=== PATIENT | male | born 1975 | race Two or more races ===

== ENCOUNTER 2019-07-30 15:39 | Emergency (ER) | payer OTHER ==
[~2019-07-30] VITALS: Ht 172.7 cm; Wt 108.9 kg
[2019-07-30] MEDS ORDERED: Acetaminophen 500mg (ES) tab ORAL ONE ×2 (15:45→16:04)
[2019-07-30] MEDS ORDERED: Tetanus/Diptheria/Pertussis IM ONE ×2 (15:45→16:09)
--- NOTE | 2019-07-30 15:45 | Emergency Room Report ---
History of Present Illness General Chief Complaint: Left head pain Source: Patient Present Illness HPI 43-year-old male, no past medical history no surgical history, vaccines are not up-to-date presents with fall from ladder 6 feet, patient fell backward hit his head, hit his left shoulder, no LOC no nausea no vomiting no neck pain, he endorses some muscle pain, patient was amatory at scene, brought in by EMS for evaluation, patient endorses left posterior head pain, no aggravating alleviating factors severity is mild Allergies: Coded Allergies: No Known Allergies (Unverified , 07/30/19) Patient History Past Medical History: see triage record Reviewed Nursing Documentation: PMH: Agreed; PSxH: Agreed Review of Systems All Other Systems: negative except mentioned in HPI Physical Exam Sp02 EP Interpretation: reviewed, normal General Appearance: well appearing, no apparent distress, alert Head: normocephalic, other - Left occipital hematoma Eyes: bilateral eye PERRL, bilateral eye EOMI ENT: uvula midline, moist mucus membranes Neck: supple, thyroid normal, no bony tend, supple/symm/no masses Respiratory: lungs clear, no respiratory distress, no retraction, no accessory muscle use Cardiovascular #1: normal peripheral pulses, regular rate, rhythm, no edema, no gallop, no murmur Gastrointestinal: non tender, soft, no guarding, no rebound Musculoskeletal: normal inspection, swelling - Medial aspect of tib-fib, other - Left upper extremity: 2+ radial pulses radial median ulnar nerve intact, tenderness palpation left lateral shoulder range of motion intact, tenderness to palpation medial tib-fib, no deformity Neurologic: alert, oriented x3 Psychiatric: mood/affect normal Skin: no rash, warm/dry Medical Decision Making Diagnostic Impression: Primary Impression: Fall Qualified Codes: W19.XXXA - Unspecified fall, initial encounter Additional Impressions: Shoulder contusion Qualified Codes: S40.012A - Contusion of left shoulder, initial encounter Contusion of muscle Closed head injury Qualified Codes: S09.90XA - Unspecified injury of head, initial encounter ER Course 43-year-old male presents with mechanical fall from ladder 6 feet high, no LOC, patient with currently no nausea vomiting chest pain shortness of breath, low suspicion for fracture, low suspicion for intracranial bleed, patient with a hematoma will provide Tdap, patient given pain control, CT head shows no acute bleeding, x-rays of the extremities show no acute fracture disposition home with return precautions Chest X-Ray Diagnostic Results Chest X-Ray Diagnostic Results : Chest X-Ray Ordered: Yes # of Views/Limited/Complete: 1 View Indication: Other - Shoulder pain EP Interpretation: Yes Interpretation: no consolidation, no effusion, no pneumothorax, no acute cardiopulmonary disease Impression: No acute disease Electronically Signed by: Marty Barry MD CT/MRI/US Diagnostic Results CT/MRI/US Diagnostic Results : Impression Impression: No mass effect, edema or acute bleed. Left scalp hematoma Cysticercosis The CT scanner at [facility] is accredited by the [employer] and the scans are performed using dose optimization techniques as appropriate to a performed exam including Automatic Exposure control. Procedure: XRAY Leg Lower Tib Fib 2v L Indication: Left leg pain Comparison: None Findings: Two views of the left tibia and fibula were obtained. No acute fracture, malalignment, or periosteal reaction are identified. Soft tissues are unremarkable. Impression: No acute injury. Dictated By: Cosmo Fish MD Electronically Signed By: Cosmo Fish MD Signed Date/Time 07/30/19 1629 CC: Marty Barry MD Dictated By: Cosmo Fish MD Electronically Signed By: Cosmo Fish MD Signed Date/Time 07/30/19 1632 CC: Marty Barry MD Procedure: XRAY Shoulder Compl L Indication: left shoulder pain Findings: 3 views of the left shoulder were obtained. Alignment of the left shoulder is normal. No acute fracture is identified. Soft tissues are unremarkable. Impression: No acute injury Dictated By: Cosmo Fish MD Electronically Signed By: Cosmo Fish MD Signed Date/Time 07/30/19 1638 CC: Marty Barry MD Disposition: HOME, SELF-CARE Condition: Stable Scripts Methocarbamol* (ROBAXIN-750*) 750 Mg Tablet 750 MG PO QID, #28 TAB 0 Refills Prov: Marty Barry MD 07/30/19 Naproxen* (NAPROSYN*) 250 Mg Tablet 250 MG ORAL TID PRN for For Pain, #20 TAB 0 Refills Prov: Marty Barry MD 07/30/19 Referrals: [facility] [place] [facility] Patient Instructions: Contusion, [id number], Head Injury, Adult, [id number] Additional Instructions: The patient was provided with discharge instructions, notified to follow-up with a primary care doctor and or specialist in the next 24-48 hours, and to return to the ED if they have worsening of their symptoms. Please note that this report is being documented using DRAGON technology. This can lead to erroneous entry secondary to incorrect interpretation by the dictating instrument. Marty Barry MD Jul 30, 2019 15:45
[2019-07-30 15:50] VITALS: BP 164/101
--- NOTE | 2019-07-30 15:50 | NUR ---
ED Nurse Note: Patineniranjan LUCIO from work. 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 He hit his head, left shoulder, left gaming, and has a small laceration on his left thumb. Patient AxO x 4, no neuro deficits. Patient states he has 8/10 generalized body aches. Patient cooperative. Patient's uniform cut off with his permission. Patient stated that he would like us to cut his uniform off so that it is less painful for him to get out of his clothing and into the hospital gown.
--- NOTE | 2019-07-30 16:34 | Diagnostic Imaging Report ---
Indication: Left leg pain Comparison: None Findings: Two views of the left tibia and fibula were obtained. No acute fracture, malalignment, or periosteal reaction are identified. Soft tissues are unremarkable. Impression: No acute injury.
--- NOTE | 2019-07-30 16:38 | Diagnostic Imaging Report ---
Indication: Headache. Head trauma Technique: Contiguous 5 mm thick transaxial imaging of the head obtained in a Siemens Sensation [address] scanner. Soft tissue and bone windows generated. Automatic Exposure Control was utilized. Total Dose length Product (DLP): 1614.[address] Dose Index Volume (CTDIvol): 62.7 mGy Comparison: none Findings: The size and configuration of the cortical sulci, basal cisterns, and ventricles are within normal limits for age. There is no mass effect, midline shift, or edema identified. There is no evidence of acute hemorrhage or abnormal intra-axial or extra-axial fluid collections. Parenchymal calcification noted in the right occipital lobe. No acute fracture is identified. There is a moderate cephalohematoma on the left vertex of the skull. Impression: No mass effect, edema or acute bleed. Left scalp hematoma Cysticercosis The CT scanner at [facility] is accredited by the [employer] and the scans are performed using dose optimization techniques as appropriate to a performed exam including Automatic Exposure control.
--- NOTE | 2019-07-30 16:43 | Diagnostic Imaging Report ---
Indication: left shoulder pain Findings: 3 views of the left shoulder were obtained. Alignment of the left shoulder is normal. No acute fracture is identified. Soft tissues are unremarkable. Impression: No acute injury
--- NOTE | 2019-07-30 16:43 | Diagnostic Imaging Report ---
Indication: Dyspnea Comparison: None A single view chest radiograph was obtained. Findings: Cardiomediastinal appearance is within normal limits for age. The lungs are clear. Pulmonary vascularity is appropriate. The diaphragmatic contour is smooth and costophrenic angles are sharp. No pleural effusions are identified. The bones are unremarkable. Impression: No acute findings
[2019-07-30] MEDS ORDERED: NAPROXEN250 MG ORAL (16:51)
[2019-07-30] MEDS ORDERED: ROBAXIN-750750 MG PO (16:51)
[2019-07-30 16:55] VITALS: BP 158/94
--- NOTE | 2019-07-30 16:55 | NUR ---
ER DISCHARGE NOTE: Patient is cleared to be discharged per ERMD, pt is aox4, on room air, with stable vital signs. pt was given dc and prescription instructions, pt was able to verbalize understanding, pt id band removed. pt is able to ambulate with steady gait. pt took all belongings.
== END 2019-07-30 16:55 | disposition home or self-care (01) ==
LOC: EDBD 15:39 → EMR 16:48
DX: S09.90XA Unspecified injury of head, initial encounter (principal); S40.012A Contusion of left shoulder, initial encounter; W11.XXXA Fall on and from ladder, initial encounter; Y92.9 Unspecified place or not applicable; Z23 Encounter for immunization
CPT/HCPCS: 70450; 71045; 90471; 90715; 99284